=== PATIENT | female | born 1985 | race Two or more races ===

== ENCOUNTER → 2017-07-17 | Outpatient (CLI) | payer MEDICAID | LOC: FIMAGING 07:18 | PROVIDERS: ATTEND Family Medicine | DX: M54.9 Dorsalgia, unspecified (principal) ==

== ENCOUNTER → 2018-03-02 | Outpatient (CLI) | payer MEDICAID ==
[~2018-03-02] MED LIST: IOPAMIDOL (ISOVUE-300) 100 ML BTL ONE
== END ==
LOC: FIMAGING 15:33
PROVIDERS: ATTEND Specialist
DX: N39.0 Urinary tract infection, site not specified (principal)
CPT/HCPCS: Q9967

== ENCOUNTER 2018-07-23 00:08 | Inpatient (IN) | payer MEDICAID ==
[2018-07-23] MEDS ORDERED: NS 1,000 ML IV ONE ×2 (00:33→02:09)
--- NOTE | 2018-07-23 00:33 | EDPHY ---
H & P Stated Complaint: generalized abd pain started around 1-2 THERAPY DIRECTOR Time Seen by Provider: 07/23/18 00:33 HPI/ROS: HPI CHIEF COMPLAINT: Abdominal pain. HISTORY OF PRESENT ILLNESS: Very pleasant 33-year-old female presents to the emergency room with abdominal pain. Patient states that approximately 2-3 hours ago she developed generalized abdominal pain now localized periumbilical crampy in nature. She has associated nausea but no vomiting. Denies diarrhea, denies urinary symptoms, denies back pain. She complains of pain 8/10 periumbilical crampy in nature. States she ate pizza tonight but did not get sick. Denies fever. Denies chest pain or shortness of breath. Past Medical History: Neck pain, arthritis, PTSD, hunger issues, "takes naltrexone for this" Past Surgical History: x4 Social History: Denies drugs alcohol tobacco. Family History: Noncontributory ROS REVIEW OF SYSTEMS: 10 Systems were reviewed and negative with the exception of the elements mentioned in the history of present illness. Exam Constitutional nontoxic no acute distress triage nursing summary reviewed, vital signs reviewed, awake/alert. Eyes normal conjunctivae and sclera, EOMI, PERRLA. HENT normal inspection, atraumatic, moist mucus membranes, no epistaxis, neck supple/ no meningismus, no raccoon eyes. Respiratory clear to auscultation bilaterally, normal breath sounds, no respiratory distress, no wheezing. Cardiovascular rate normal, regular rhythm, no murmur, no edema, distal pulses normal. Gastrointestinal mild tender palpation periumbilical, no rebound, no guarding, normal bowel sounds, no distension, no pulsatile mass. Genitourinary no CVA tenderness. Musculoskeletal no midline vertebral tenderness, full range of motion, no calf swelling, no tenderness of extremities, no meningismus, good pulses, neurovascularly intact. Skin pink, warm, & dry, no rash, skin atraumatic. Neurologic awake, alert and oriented x 3, AAOx3, moves all 4 extremities equally, motor intact, sensory intact, CN II-XII intact, normal cerebellar, normal vision, normal speech. Psychiatric normal mood/affect. Heme/Lymph/Immune no lymphadenopathy. Differential Diagnosis: Differential diagnosis includes but is not limited to and in no particular order: Bowel obstruction, appendicitis, gallbladder disease, diverticulitis, colitis, enteritis, perforated viscus, gastritis, GERD , esophagitis, urinary tract infection, pyelonephritis, kidney stones Medical Decision Making: Plan for this patient IV establishment IV fluid bolus 4 mg IV Zofran for nausea, she declined pain medicine at this time, check test, urinalysis, CT scan abdomen pelvis with IV contrast re-evaluate. Re-evaluation: CBC sent to me by the lab by paper as the CBC machine is down White count 9.9, hemoglobin 14.2, hematocrit 41.8, platelet count 220 CT scan abdomen pelvis with IV contrast faxed to me by direct Radiology 2:00 a.m. Shows prominent fluid-filled loops of small bowel right abdomen pelvis differential should include early partial small-bowel obstruction versus ileus. Appendix is not visualized. 0311: General surgery was consult Dr. Herrera. He will see and evaluate the patient. Source: Patient - Personal History LMP (Females 10-55): Extended Cycle BCP/Inj Current Tetanus/Diphtheria Vaccine: Unsure Current Tetanus Diphtheria and Acellular Pertussis (TDAP): Unsure - Medical/Surgical History Hx Asthma: Yes Hx Chronic Respiratory Disease: No Hx Diabetes: No Hx Cardiac Disease: No Hx Renal Disease: No Hx Cirrhosis: No Hx Alcoholism: No Hx HIV/AIDS: No Hx Splenectomy or Spleen Trauma: No Other PMH: Migraines. Anemia. chronic neck/back pain., arthitis - Social History Smoking Status: Never smoked Constitutional: Initial Vital Signs Temperature (C) 37.0 C 07/23/18 00:13 Heart Rate 87 07/23/18 00:13 Respiratory Rate 16 07/23/18 00:13 Blood Pressure 111/70 07/23/18 00:13 O2 Sat (%) 97 07/23/18 00:13 O2 Delivery Mode Room Air Allergies/Adverse Reactions: No Known Allergies Allergy (Verified 07/23/18 00:15) Home Medications: Medication Instructions Recorded Sertraline HCl [Zoloft 100mg (*)] 200 mg PO HS 05/16/16 Herbals/Supplements -Info Only 1 ea PO DAILY 07/23/18 Naltrexone HCl [Revia 50mg (RX)] 50 mg PO HS 07/23/18 Medical Decision Making - Data Points Laboratory Results: Laboratory Results 07/23/18 00:36 07/23/18 00:36 Medications Given: Hydromorphone HCl (Dilaudid) 0.2 - 0.4 mg IVP Q1HR PRN PRN Reason: Pain, Breakthrough Stop: 08/02/18 03:47 Last Admin: 07/24/18 13:35 Dose: 0.4 mg Potassium Chloride 10 meq/ (Dextrose/Sodium Chloride) 1,000 mls @ 100 mls/hr IV CONT [facility] Stop: 01/20/19 08:59 Last Admin: 07/24/18 21:31 Dose: 1,000 mls Ketorolac Tromethamine (Toradol) 30 mg IVP Q6HRS [facility] Stop: 07/28/18 05:59 Last Admin: 07/25/18 00:18 Dose: 30 mg Pantoprazole Sodium (Protonix) 40 mg IVP DAILY [facility] Stop: 01/19/19 08:59 Last Admin: 07/24/18 07:54 Dose: 40 mg Throat Lozenges (Cepacol Lozenge) 1 ea PO Q2 PRN PRN Reason: Sore Throat Stop: 01/19/19 04:11 Last Admin: 07/24/18 21:04 Dose: 1 ea Discontinued Medications Sodium Chloride (Ns) 1,000 mls @ 0 mls/hr IV EDNOW ONE; Wide Open PRN Reason: Protocol Stop: 07/23/18 00:34 Last Admin: 07/23/18 00:40 Dose: 1,000 mls Sodium Chloride (Ns) 1,000 mls @ 0 mls/hr IV ONCE ONE PRN Reason: Wide Open Stop: 07/23/18 02:10 Last Admin: 07/23/18 02:14 Dose: 1,000 mls Lactated Ringer's (Lr) 1,000 mls @ 100 mls/hr IV CONT [facility] Stop: 01/19/19 03:59 Last Admin: 07/24/18 07:53 Dose: 1,000 mls Ondansetron HCl (Zofran) 4 mg IVP EDNOW ONE Stop: 07/23/18 00:39 Last Admin: 07/23/18 00:42 Dose: 4 mg Ondansetron HCl (Zofran) 4 mg IVP EDNOW ONE Stop: 07/23/18 02:12 Last Admin: 07/23/18 02:14 Dose: 4 mg Departure - Departure Disposition: [facility] Acute Clinical Impression: SBO (small bowel obstruction) Condition: Fair
[2018-07-23] MEDS ORDERED: ONDANSETRON 4 MG/2 ML VIAL IVP ONE ×2 (00:38→02:11)
[2018-07-23] MEDS ORDERED: IOHEXOL 300 mgI/ML (OMNIPAQUE) 150 ML BTL IV ONE (01:22)
[2018-07-23 02:33] LABS: PLATELET COUNT 220 10^3/uL (150-400)
[2018-07-23] MEDS ORDERED: BENZOCAINE UNIT DOSE SPRAY HURRICAINE MM ONE (03:43)
[2018-07-23] MEDS ORDERED: LIDOCAINE 2% VISCOUS 15 ML UDCUP ONE (03:46)
[2018-07-23] MEDS ORDERED: ONDANSETRON 4 MG/2 ML VIAL IVP PRN (03:48)
--- NOTE | 2018-07-23 04:40 | GHP ---
[f rep st] PREOP HISTORY AND PHYSICAL DATE OF ADMISSION: 07/23/2018 ADMITTING DIAGNOSIS: Bowel obstruction, constipation. HISTORY: The patient is a 33-year-old white female who was hungry last evening and had pizza for din ner at approximately 8:00 p.m. At 10:30 last night she had the onset of a crampy diffuse abdominal p ain that she felt was like a miscarriage. She could not get comfortable. She had intense nausea, bu t no vomiting. She has had no prior similar symptoms. She has had 4 C-sections, but no other abdomi nal surgery. She has problems with her bowel movements, which vary between diarrhea and constipation . Note is made she has "felt tired for the last several weeks". She has not had recent upper respir atory tract infection. She does have diarrhea 1-2 times a day every 4 days. She has had blood in th e stool in the past, which has been diagnosed as hemorrhoids. She does move her bowels daily. A col onoscopy in 2006 was performed because she had blood in her stool. A fissure was identified. She do es have pain with bowel movements. There is no history of ulcer colitis or Crohn's. She had stool s ample sent for "an infection" on Thursday of this week, but no information is yet available. She has sammie ruff told she might have hemorrhoids. SOCIAL HISTORY: She did smoke 1-2 cigarettes a week for approximately a year in the past. She does not drink. ALLERGIES: She has no known drug allergies. MEDICATIONS: Include: 1. Zoloft 200 mg at bedtime. 2. She takes Naltrexone 50 mg at bedtime for pain in her neck and wrist. 3. She takes Zyrtec for cold induced urticaria. 4. She takes a cranberry supplement for chronic UTIs. 5. She uses colchicine (dose unclear) for canker sores. PAST SURGICAL HISTORY: She has had no other surgeries in addition to the C-sections mentioned above. There is no history of rheumatic fever, tuberculosis, hepatitis, or transfusions. REVIEW OF SYSTEMS: She had a seizure in 2012. Followup evaluation with an EEG was negative. She calvert s heartburn approximately 2 times a week. She does have asthma for which she uses inhaler on approxi mately a once to twice a year basis. She says she has lactose intolerance as manifested by GI upset. No limits on her activities. No history of steroid use. FAMILY HISTORY: Mother is 54 years old. She has a "heart problem" which cannot otherwise be charact erized. Her father is 55 years old and alive and well. She has an older brother who is 35 and a you nger brother who is 26, both are alive and well. There are no bleeding disorders, clotting disorders , difficulty with anesthesia in the patient or the family. PHYSICAL EXAMINATION: VITAL SIGNS: Blood pressure is 108/69, heart rate 71, respirations 18, room a ir saturation 96%. GENERAL: She is awake, pleasant, and complaining of abdominal discomfort. HEENT: Skull is normocephalic and atraumatic. NECK: Supple and nontender without thyroid enlargement or bruits. LYMPHATICS: There is no cervical, supraclavicular, axillary, or inguinal lymphadenopathy. BACK: Unremarkable. LUNGS: Clear to auscultation. CARDIAC: Exam shows S1, S2 normal. Normal split of S2 without murmurs, rubs, or gallops. ABDOMEN: She has distinctly hypoactive bowel sounds. She is tender with cough to the left and infer ior to the umbilicus, that is 6 on a scale of 1-10. Palpation of the left upper quadrant is 6, left mid abdomen is 8, left lower quadrant is 8, epigastrium is 4, periumbilical area is 8, suprapubic are a is 8, right upper quadrant is 6, right mid abdomen is 6, right lower quadrant is 6. Psoas and obtu rator signs are negative. LABORATORY DATA: Her white count is 9,900 with 60% neutrophils, hematocrit 41%, platelets are 220,00 0. Beta hCG is negative. Sodium is 138, potassium is 4.1, BUN is 10, and creatinine is 0.6. Lipase is 113. Her CT does not show any evidence of hernia formation. She certainly has a distended stomach and sma ll bowel. There is some stool throughout the colon. I cannot identify any true distinct transition point. IMPRESSION: Abdominal obstruction. It is unclear whether this is due to constipation secondary to Z oloft and inadequate liquid intake. TSH is pending. It is possible that this is due to a bowel obstruction secondary to adhesions from her prior surgery. NG tube will be passed. Enemas will be given. The patient will be admitted for observation and re -evaluation. At this point I do not feel she has signs of an acute abdomen. /[id number]/MODL
[2018-07-23] MEDS: KETOROLAC 30 MG/1 ML SDV IVP SCH ×4 (05:10→23:59)
[2018-07-23] MEDS: LR 1,000 ML IV SCH (05:11)
[2018-07-23] MEDS: CEPACOL LOZENGE PO PRN ×5 (05:11→19:32)
[2018-07-23] MEDS: HYDROmorphONE/DILAUDID 1 MG/ML INJ IVP PRN ×2 (06:33→13:11)
[2018-07-23 08:20] LABS: PLATELET COUNT 201 10^3/uL (150-400)
[2018-07-23] MEDS: PANTOPRAZOLE SODIUM 40 MG VIAL IVP SCH (10:08)
--- NOTE | 2018-07-23 15:00 | ASMTCMCOM ---
CM Note CM Note Notes: Pt in for ileus SBO, is NPO. Pt chart reviewed. Pt resides with . No therapies ordered. No remarkable [facility] admission history. CM to follow pt progress for d/c planning. Date Signed: 07/23/2018 02:59 PM Electronically Signed By:MAX Dudley
--- NOTE | 2018-07-23 16:09 | SOAPPROG ---
SOAP Progress Note Assessment/Plan: 07/23/18 16:00 PAD#0 Assessment: Passing minimal flatus. +/- bowel sounds. Minimal improvement. Not nauseous. VSS Xray shows more gas in colon Plan: Continue non-operative supportive care Subjective: I've had a small amount of flatus Objective: Vital Signs Temp Pulse Resp BP Pulse Ox 36.7 C 62 17 99/59 L 97 07/23/18 11:56 07/23/18 11:56 07/23/18 11:56 07/23/18 11:56 07/23/18 11:56 Laboratory Results 07/23/18 08:14 07/23/18 08:14 07/22/18 07/23/18 07/24/18 05:59 05:59 05:59 Intake Total 1999 Output Total Balance 1999 - - Time Spent With Patient Time Spent With Patient: 25 - Pending Discharge Pending Discharge Within 24 Hours: No Pending Discharge Within 48 Hours: No Physical Exam - Physical Exam General Appearance: WD/WN, alert, mild distress Respiratory: chest non-tender, lungs clear, normal breath sounds Cardiac/Chest: regular rate, rhythm Abdomen: non-tender, soft, other (hypoactive but normal bowel sounds) Pelvic Exam: deferred Rectal: deferred Back: Normal inspection Skin: normal color, warm/dry Neuro/Psych: no motor/sensory deficits, alert, normal mood/affect, oriented x 3 ICD10 Worksheet Patient Problems: Problems Problem Status Onset SBO (small bowel obstruction) Acute
[2018-07-24 05:02] LABS: PLATELET COUNT 165 10^3/uL (150-400)
[2018-07-24] MEDS: KETOROLAC 30 MG/1 ML SDV IVP SCH ×3 (06:16→18:02)
[2018-07-24] MEDS: HYDROmorphONE/DILAUDID 1 MG/ML INJ IVP PRN ×2 (07:53→13:35)
[2018-07-24] MEDS: LR 1,000 ML IV SCH (07:53)
[2018-07-24] MEDS: PANTOPRAZOLE SODIUM 40 MG VIAL IVP SCH (07:54)
[2018-07-24] MEDS: CEPACOL LOZENGE PO PRN ×4 (07:54→21:04)
--- NOTE | 2018-07-24 08:57 | SOAPPROG ---
SOAP Progress Note Assessment/Plan: 07/23/18 16:00 PAD#0 Assessment: Passing minimal flatus. +/- bowel sounds. Minimal improvement. Not nauseous. VSS Xray shows more gas in colon Plan: Continue non-operative supportive care 07/24/18 08:54 POD#1 Assessment: No stool, NG output increased, diminished but normal BS, Reports small amount of flatus, Abdominal Xray pending, Labs stable Plan: X-ray eval, Has not yet opened up may need to explore Subjective: Small amount of flatus reported Objective: Vital Signs Temp Pulse Resp BP Pulse Ox 36.7 C 75 16 107/62 95 07/24/18 07:41 07/24/18 07:41 07/24/18 07:41 07/24/18 07:41 07/24/18 07:41 Laboratory Results 07/24/18 04:28 07/24/18 04:28 07/23/18 07/24/18 07/25/18 05:59 05:59 05:59 Intake Total 1999 700 1200 Output Total 51 300 Balance 1999 649 900 - Time Spent With Patient Time Spent With Patient: 25 Physical Exam - Physical Exam General Appearance: WD/WN, alert, no apparent distress Respiratory: chest non-tender, lungs clear, normal breath sounds Cardiac/Chest: regular rate, rhythm Abdomen: non-tender, soft, other (hypoactive bowel sounds) Pelvic Exam: deferred Rectal: deferred Back: Normal inspection Skin: normal color, warm/dry Neuro/Psych: alert, normal mood/affect, oriented x 3 ICD10 Worksheet Patient Problems: Problems Problem Status Onset SBO (small bowel obstruction) Acute
[2018-07-24] MEDS: POTASSIUM Cl (KCl) 10 MEQ in D5W 1/2 NS 1,000 ML IV SCH ×2 (10:19→21:31)
[2018-07-25] MEDS: KETOROLAC 30 MG/1 ML SDV IVP SCH ×4 (00:18→17:19)
[2018-07-25] MEDS: CEPACOL LOZENGE PO PRN ×2 (03:12→07:10)
[2018-07-25] MEDS: HYDROmorphONE/DILAUDID 1 MG/ML INJ IVP PRN ×2 (03:18→18:31)
[2018-07-25 05:38] LABS: PLATELET COUNT 169 10^3/uL (150-400)
[2018-07-25] MEDS: POTASSIUM Cl (KCl) 10 MEQ in D5W 1/2 NS 1,000 ML IV SCH (07:11)
[2018-07-25] MEDS ORDERED: ERTAPENEM 1 GM in NS 100 ML IV ONE (07:56)
--- NOTE | 2018-07-25 08:00 | SOAPPROG ---
SOAP Progress Note Assessment/Plan: 07/23/18 16:00 PAD#0 Assessment: Passing minimal flatus. +/- bowel sounds. Minimal improvement. Not nauseous. VSS Xray shows more gas in colon Plan: Continue non-operative supportive care 07/24/18 08:54 PAD#1 Assessment: No stool, NG output increased, diminished but normal BS, Reports small amount of flatus, Abdominal Xray pending, Labs stable Plan: X-ray eval, Has not yet opened up may need to explore 07/25/18 07:57 PAD#2 Assessment: No stool, minimal flatus, NG functioning, VSS - Essentially no resolution to high grade partial SBO Plan: Exploratory laparotomy Subjective: I have only had a minimal amount of gas Objective: Vital Signs Temp Pulse Resp BP Pulse Ox 36.9 C 92 15 119/65 96 07/25/18 04:00 07/25/18 04:00 07/25/18 04:00 07/25/18 04:00 07/25/18 04:00 Laboratory Results 07/25/18 05:05 07/25/18 05:05 07/24/18 07/25/18 07/26/18 05:59 05:59 05:59 Intake Total 700 1800 1200 Output Total 51 500 400 Balance 649 1300 800 - Time Spent With Patient Time Spent With Patient: 15 - Pending Discharge Pending Discharge Within 24 Hours: No Pending Discharge Within 48 Hours: No Physical Exam - Physical Exam General Appearance: WD/WN, alert, no apparent distress Respiratory: chest non-tender, lungs clear, normal breath sounds Cardiac/Chest: regular rate, rhythm Abdomen: non-tender, soft, other (very rare bowel sounds) Pelvic Exam: deferred Rectal: deferred Back: Normal inspection Skin: normal color, warm/dry Extremities: normal range of motion, non-tender Neuro/Psych: no motor/sensory deficits, alert, normal mood/affect, oriented x 3 ICD10 Worksheet Patient Problems: Problems Problem Status Onset SBO (small bowel obstruction) Acute
[2018-07-25] MEDS: PANTOPRAZOLE SODIUM 40 MG VIAL IVP SCH (08:22)
--- NOTE | 2018-07-25 09:27 | PDANEPAE ---
ANE History of Present Illness exploratory laparoscopy, poss. laparotomy ANE Past Medical History - Pulmonary History Hx Asthma/Reactive Airway Disease: Yes Hx Oxygen in Use at Home: No Hx Sleep Apnea: No Sleep Apnea Screening Result - Last Documented: Negative - Endocrine History Hx Diabetes: No - Neurological & Psychiatric Hx Hx Neurological and Psychiatric Disorders: Yes Neurological / Psychiatric History Comment: seizures in the past - GI History Hx Gastrointestinal Disorders: Yes - Chronic Pain History Chronic Pain: Yes ANE Review of Systems Review of systems is: negative Review of Systems: - Exercise capacity Exercise capacity: >=4 METS ANE Patient History - Allergies Allergies/Adverse Reactions: No Known Allergies Allergy (Verified 07/23/18 00:15) - Home Medications Home medications: home medication list seen and reviewed Home Medications: Sertraline HCl [Zoloft 100mg (*)] 200 mg PO HS 05/16/16 [Last Taken 07/21/18] Herbals/Supplements -Info Only 1 ea PO DAILY 07/23/18 [Last Taken Unknown] Naltrexone HCl [Revia 50mg (RX)] 50 mg PO HS 07/23/18 [Last Taken 07/21/18] - NPO status NPO Status: no food or drink >8 hours NPO Since - Liquids (Date): 07/23/17 NPO Since - Solids (Date): 07/23/17 - Anes Hx Anes Hx: no prior problems - Smoking Hx Smoking Status: Current some day smoker - Family Anes Hx Family Anes Hx: none ANE Labs/Vital Signs - Labs Result Diagrams: 07/25/18 05:05 07/25/18 05:05 - Vital Signs Vital Signs: reviewed preoperatively; see RN documention for details Blood Pressure: 110/59 Heart Rate: 66 Respiratory Rate: 18 O2 Sat (%): 96 Height: 167.64 cm Weight: 69.853 kg ANE Physical Exam - Airway Neck exam: FROM Mallampati Score: Class 1 Mouth exam: normal dental/mouth exam - Pulmonary Pulmonary: no respiratory distress - Cardiovascular Cardiovascular: regular rate and rhythym - ASA Status ASA Status: II ANE Anesthesia Plan Anesthesia Plan: general endotracheal anesthesia Urgent/Emergent Case: Chinyerejunito valente completed preop but documented later for safe timely pt care
[2018-07-25] MEDS ORDERED: MIDAZOLAM 2 MG/2 ML VIAL IVP ONE (09:28)
--- NOTE | 2018-07-25 09:45 | PDMN ---
Medical Necessity Medical necessity: Pt meets IP criteria as of 07/24/18 per MD and [facility] M-210 ( INtestinal obstruction); los > 2 mn for partial SBO that has persisted despite observation care with IVF and NG tube, plan for exploratory laparotomy.
[2018-07-25] MEDS ORDERED: SUGAMMADEX SODIUM 200 MG/2 ML VIAL IVP ONE (10:28)
[2018-07-25] MEDS ORDERED: PROPOFOL 200 MG/20 ML VIAL ONE (10:28)
[2018-07-25] MEDS ORDERED: DEXAMETHASONE 4 MG/ML VIAL ONE (10:28)
[2018-07-25] MEDS ORDERED: ONDANSETRON 4 MG/2 ML VIAL ONE (10:28)
[2018-07-25] MEDS ORDERED: LIDOCAINE 2% 100 MG/5 ML SYR ONE (10:28)
[2018-07-25] MEDS ORDERED: fentaNYL 250 MCG/5 ML INJ ONE (10:28)
[2018-07-25] MEDS ORDERED: ROCURONIUM 50 MG/5 ML VIAL ONE (10:28)
[2018-07-25] MEDS ORDERED: MIDAZOLAM 2 MG/2 ML VIAL ONE (10:38)
[2018-07-25] MEDS ORDERED: HEPARIN 5,000 UNIT/0.5 ML INJ ONE (11:00)
[2018-07-25] MEDS ORDERED: ceFAZolin 1 GM/5 ML SYR ONE (11:00)
[2018-07-25] MEDS ORDERED: MEPERIDINE 25 MG/0.5 ML AMP IVP PRN (11:20)
[2018-07-25] MEDS ORDERED: HYDROCODONE/APAP 5/325 TAB PO PRN (11:20)
[2018-07-25] MEDS ORDERED: fentaNYL 100 MCG/2 ML INJ IVP PRN (11:20)
[2018-07-25] MEDS ORDERED: oxyCODONE IR 5 MG TAB PO PRN (11:20)
[2018-07-25] MEDS ORDERED: NALOXONE HCL 0.4 MG/ML INJ IVP PRN (11:20)
[2018-07-25] MEDS ORDERED: ALBUTEROL 3 ML DEYVIAL IH PRN (11:20)
[2018-07-25] MEDS ORDERED: PROMETHAZINE HCL 25 MG/ML INJ IVP PRN (11:20)
[2018-07-25] MEDS ORDERED: DEXAMETHASONE 4 MG/ML VIAL IVP PRN (11:20)
[2018-07-25] MEDS ORDERED: ACETAMINOPHEN 500 MG TAB PO PRN (11:20)
[2018-07-25] MEDS ORDERED: ONDANSETRON 4 MG/2 ML VIAL IVP PRN ×2 (11:20→14:16)
--- NOTE | 2018-07-25 11:25 | POSTANESTH ---
Post Anesthetic Evaluation Cardiovascular Status: Normal, Stable, Similar to Pre-Op Cond Respiratory Status: Normal, Stable, Similar to Pre-op Cond. Level of Consciousness/Mental Status: Can Participate in Eval, Mildly Sleepy, Arousable Pain Control: Adequate, Prn Tx Ordered Nausea/Vomiting Control: Adequate, Prn Tx Ordered Complications Possibly Related to Anesthesia: None Noted
[2018-07-25] MEDS ORDERED: GLYCOPYRROLATE 0.2 MG/1 ML VIAL ONE ×2 (11:34)
[2018-07-25] MEDS ORDERED: NEOSTIGMINE METHYLSULFATE 5 MG/5 ML SYR ONE (11:34)
[2018-07-25] MEDS ORDERED: KETOROLAC 30 MG/1 ML SDV ONE (12:04)
[2018-07-25] MEDS ORDERED: HYDROmorphONE/DILAUDID 2 MG/ML INJ ONE (12:04)
--- NOTE | 2018-07-25 12:05 | POSTOPPROG ---
Post Op Note Date of Operation: 07/25/18 Surgeon: Junior Herrera Anesthesia: GET(General Endotracheal) Pre-op Diagnosis: High grade partial SBO, infected left cheek body piercing Post-op Diagnosis: Adhesions Indication: High grade partial SBO, infected left cheek body piercing Procedure: Laparoscopic enterolysis, removal of infected body piercing Findings: Adhesions Inf/Abcess present in the surg proc area at time of surgery?: Yes Depth: Superfical (Skin SQ) (at site of piercing) Total fluids administered: 800 Complications: none Specimen(s): none
[2018-07-25] MEDS: HYDROmorphONE/DILAUDID 2 MG/ML INJ IVP PRN ×5 (12:13→13:07)
[2018-07-25] MEDS: LR 1,000 ML IV SCH (13:41)
--- NOTE | 2018-07-25 13:51 | ASMTCMCOM ---
CM Note CM Note Notes: Patient chart reviewed. She is s/p laparoscopic surgery with SBO. CM to follow for needs. Plan: TBD likely no needs at discharge. Date Signed: 07/25/2018 01:51 PM Electronically Signed By:Brittany Phillips RN
[2018-07-25] MEDS: ACETAMINOPHEN 500 MG TAB PO SCH ×2 (15:28→21:38)
[2018-07-25] MEDS ORDERED: PROCHLORPERAZINE MALEATE 25 MG SUPPR PR PRN (15:36)
[2018-07-25] MEDS ORDERED: SCOPOLAMINE HYDROBROMIDE 1 MG/3 DAYS PATCH TD SCH (15:45)
[2018-07-25] MEDS ORDERED: NS 500 ML IV ONE (19:00)
[2018-07-25] MEDS ORDERED: SERTRALINE HCL 100 MG TAB PO SCH (21:00)
--- NOTE | 2018-07-25 21:22 | GOP ---
[f rep st] OPERATIVE REPORT DATE OF OPERATION: 07/25/2018 SURGEON: Junior Herrera MD ANESTHESIA: General endotracheal anesthesia. ANESTHESIOLOGIST: Dale Gottlieb MD PREOPERATIVE DIAGNOSIS: High-grade partial small bowel obstruction, infected left cheek body piercing. POSTOPERATIVE DIAGNOSIS: Intraabdominal adhesions. PROCEDURE PERFORMED: Laparoscopic enterolysis, removal of infected body piercing. FINDINGS: Adhesions. There was a superficial infection at the body piercing site, which drained. There was no intraabdominal infection. SPECIMENS: None. INDICATIONS: High-grade partial small bowel obstruction, infected left cheek body piercing. DESCRIPTION OF PROCEDURE: The patient was placed on the operating table in the supine position. She had an NG tube in place. A Peñaloza catheter was positioned. The abdomen was carefully clipped, prepped, and draped. Using hemostats, I was able to free up the locking nut on the body piercing and remove it. Small amount of purulent material drained. After scrubbing, I returned to the room. Surgical time-out was carried out and agreed to by all members of the operative team. Because of the history of extensive adhesions, I planned to enter the abdomen above the umbilicus above her other body piercing site. The skin was sharply incised in the midline for a distance of approximately 1.25 cm. The incision was deepened with Bovie electrocautery down to the fascia, which was cautiously opened with cautery. A pursestring #0 PDS was placed. The peritoneum was entered. An 11-12 mm disposable Kiana trocar was positioned. Intra-abdominal insufflation was carried out to 15 mmHg. There was 1 midline intraabdominal adhesion of the omentum to the anterior abdominal wall, which was easily visualized. Two left abdominal ports were placed. They were both 5 mm. This was done under direct vision. Using a Harmonic scalpel and counter tension, the adhesion was removed. The patient was placed in Trendelenburg and rotated to the left. The small bowel was carefully run throughout its complete course. The patient was then carefully shifted to midline and to the right to allow me to go up the whole length of the small bowel. No other adhesive bands were identified. I was able to run the bowel all the way to the level of the ligament of Treitz. The colon was carefully examined in the ascending, transverse, and rectosigmoid regions. No other obstructions were noted. Photographic documentation was carried out of the ovaries, the adhesion, and the uninflamed appendix. The 5 mm ports were removed under direct vision. A pursestring of #0 PDS had been placed at the fascial level. A simple inverted suture #0 PDS was placed at the midpoint of the fascial incision. That was tied 1st and the pursestring was tied. The subcutaneous tissue was well irrigated. Hemostasis was excellent. Inverted simple sutures of #4-0 Monocryl were used to close the incisions. Mastisol and Steri-Strips were used. Band-Aids were applied. The patient was transferred to recovery in stable and satisfactory condition after her NG and her Peñaloza catheter had been removed. FLUIDS REPLACED: 800 cc. COMPLICATIONS: None. /[id number]/MODL MTDD
[2018-07-26] MEDS: KETOROLAC 30 MG/1 ML SDV IVP SCH ×3 (00:21→12:17)
[2018-07-26] MEDS: LR 1,000 ML IV SCH ×2 (00:22→09:01)
[2018-07-26] MEDS: ACETAMINOPHEN 500 MG TAB PO SCH ×2 (06:12→13:50)
[2018-07-26] MEDS: PANTOPRAZOLE SODIUM 40 MG VIAL IVP SCH (08:48)
[2018-07-26] MEDS: HYDROmorphONE/DILAUDID 1 MG/ML INJ IVP PRN (08:54)
[2018-07-26 11:27] VITALS: BP 104/60
--- NOTE | 2018-07-26 11:39 | SOAPPROG ---
SOAP Progress Note Assessment/Plan: 07/23/18 16:00 PAD#0 Assessment: Passing minimal flatus. +/- bowel sounds. Minimal improvement. Not nauseous. VSS Xray shows more gas in colon Plan: Continue non-operative supportive care 07/24/18 08:54 PAD#1 Assessment: No stool, NG output increased, diminished but normal BS, Reports small amount of flatus, Abdominal Xray pending, Labs stable Plan: X-ray eval, Has not yet opened up may need to explore 07/25/18 07:57 PAD#2 Assessment: No stool, minimal flatus, NG functioning, VSS - Essentially no resolution to high grade partial SBO Plan: Exploratory laparotomy POD#1 07/26/18 11:35 Assessment: doing quite well, passing gas, taking liquids, hungry, VSS, nausea resolved Plan: Advance diet. Subjective: I feel much better Objective: Vital Signs Temp Pulse Resp BP Pulse Ox 36.8 C 67 17 104/60 88 L 07/26/18 11:26 07/26/18 11:26 07/26/18 11:26 07/26/18 11:26 07/26/18 11:26 Laboratory Results 07/25/18 05:05 07/26/18 05:10 07/25/18 07/26/18 07/27/18 05:59 05:59 05:59 Intake Total 600 3552 682 Output Total 200 2210 500 Balance 400 1342 182 - Time Spent With Patient Time Spent With Patient: 15 Physical Exam - Physical Exam General Appearance: WD/WN, alert, no apparent distress Respiratory: lungs clear, normal breath sounds Cardiac/Chest: regular rate, rhythm Abdomen: normal bowel sounds, non-tender, soft, other (incisions are clean and dry) Pelvic Exam: deferred Rectal: deferred Back: Normal inspection Skin: normal color, warm/dry Neuro/Psych: no motor/sensory deficits, alert, normal mood/affect, oriented x 3 ICD10 Worksheet Patient Problems: Problems Problem Status Onset SBO (small bowel obstruction) Acute
[2018-07-26] MEDS ORDERED: PATCH REMOVAL 1 EA PATCH TD ONE (15:36)
--- NOTE | 2018-07-26 16:05 | GDS ---
[f rep st] DISCHARGE SUMMARY DISCHARGE DIAGNOSIS: Small bowel obstruction secondary to adhesions. PROCEDURE: Laparoscopic enterolysis. DISCHARGE DISPOSITION: Home. CONDITION: Good. DIET: No restrictions on the diet. Texture: No restrictions on the texture of the diet. MEDICATIONS: At discharge, she will continue on Tylenol 1000 mg every 8 hours scheduled and Toradol 10 mg every 6 hours scheduled. She will use Dilaudid 2 mg for breakthrough pain. She will continue her Zoloft 100 mg q.h.s. She will continue on her Revia 50 mg p.o. q.h.s. and her herbal supplements . For the next 3 weeks, she is to lift less than 10 pounds, shower only, and keep her Steri-Strips in p lace. She is to avoid constipating foods such as bananas, rice, applesauce, and cheese. She is to take a m ultivitamin with zinc, copper, and C. She will follow up with Dr. Mohamud Bobby and his associates, Drs. Heard and Madan in 10 days to 2 weeks or she can follow up with Dr. Enrique Bond, her [facility] care system physician. HOSPITAL COURSE: The patient was admitted with a bowel obstruction. It was a partial high-grade bow el obstruction, which did not resolve with NG suction. She was taken to the operating room on the , where a laparoscopic procedure was performed, and laparoscopic enterolysis was performed. She calvert s done well since that time. She was taking clear liquids and now a regular diet. She is feeling we ll, passing gas, moving her bowels. Her pain is well controlled. I feel she is set for discharge. /[id number]/MODL
[2018-07-28] MEDS ORDERED: PATCH REMOVAL 1 EA PATCH TD SCH (15:36)
== END 2018-07-26 16:44 | disposition home or self-care (01) | DRG 224 ==
LOC: F3N 04:48 → OBSVTOIN 07-24 16:30
PROVIDERS: ADMIT Surgery; ATTEND Surgery
DX: K56.51 Intestinal adhesions [bands], with partial obstruction (principal); E86.9 Volume depletion, unspecified; L08.89 Other specified local infections of the skin and subcutaneous tissue; Z72.0 Tobacco use
CPT/HCPCS: 96374; G0378; J1100; J1170; J1335; J1644; J1885; J2001; J2250; J2405; J2704; J2710; J3010; J3480; Q9967

== ENCOUNTER → 2018-07-28 | Outpatient (CLI) | payer MEDICAID | LOC: GIMAGING 08:32 → EDSTATUS 15:33 | PROVIDERS: ATTEND Family Medicine | DX: K59.00 Constipation, unspecified (principal); R10.9 Unspecified abdominal pain; Z98.890 Other specified postprocedural states | CPT/HCPCS: 74019-PO ==